=== PATIENT | male | born 2000 | race Caucasian/White ===

== ENCOUNTER 2022-08-25 06:46 | Emergency (ER) | payer OTHER, MEDICAID ==
[~2022-08-25] VITALS: Ht 195.6 cm; Wt 90.5 kg
== END 2022-08-25 07:38 | disposition home or self-care (01) ==
LOC: ED 06:46
DX: S00.93XA Contusion of unspecified part of head, initial encounter (principal); Z91.030 Bee allergy status; W22.8XXA Striking against or struck by other objects, initial encounter
CPT/HCPCS: 99283